=== PATIENT | female | born 1995 ===

== ENCOUNTER 2020-02-23 11:17 | Outpatient (CLI) | payer BC, OTHER ==
[2020-02-24 12:22] LABS: SARS-CoV-2 MS2 Positive; SARS-CoV-2 N Gene Negative; SARS-CoV-2 S Gene Negative; SARS-CoV-2 by NAA Not Detected (NotDetected); SARS-CoV-2 orf1ab Negative
== END 2020-02-23 11:18 | disposition home or self-care (01) ==
LOC: LABSCS 11:17
PROVIDERS: ATTEND Obstetrics & Gynecology
DX: Z20.828 Contact with and (suspected) exposure to other viral communicable diseases (principal)
CPT/HCPCS: 87635; U0003

== ENCOUNTER 2020-02-26 19:30 | Inpatient (IN) | payer BC, OTHER ==
[~2020-02-26 19:30] MED LIST: Bupivacaine 0.25% HCL 30 ML VIAL ONE
[2020-02-26] MEDS ORDERED: Lidocaine 1% (PF) 30 ML VIAL SC PRN (20:43)
[2020-02-26] MEDS ORDERED: Ibuprofen 800 MG TAB PO PRN (20:43)
[2020-02-26] MEDS ORDERED: Ondansetron PF 4 MG/2 ML Vial IVP PRN (20:43)
[2020-02-26] MEDS ORDERED: hydrALAZINE 20 MG/ML VIAL SLOW IVP PRN (20:43)
[2020-02-26] MEDS ORDERED: NS / Oxytocin 40 units/1000ml 1,000 ML IV PRN (20:43)
[2020-02-26] MEDS ORDERED: HYDROcodone/Acetaminophen 5/325 mg Tablet PO PRN ×2 (20:43)
[2020-02-26] MEDS ORDERED: Promethazine HCl 25 MG/ML VIAL IM PRN (20:43)
[2020-02-26] MEDS ORDERED: NS w/ Oxytocin 10 units 500 ML IV SCH ×2 (20:43)
[2020-02-26 21:15] LABS: Hemoglobin 13.5 g/dL (12.0-16.0); Mean Corpuscular Hemoglobin 29.9 pg (27.0-31.0); Mean Corpuscular Volume 87.9 fL (78.0-98.0); Mean Platelet Volume 8.3 fL (7.4-10.4); Platelet Count 314 thou/uL (130-400); RBC Distribution Width 14.9 % (11.5-14.5); Red Blood Cell (RBC) Count 4.53 mill/uL (4.20-5.40); White Blood Cell (WBC) Count 15.1 thou/uL (4.8-10.8)
[2020-02-26 21:18] VITALS: BMI 29.0
[2020-02-26] MEDS ORDERED: Misoprostol 100 MCG TAB VAG SCH ×2 (21:30)
[2020-02-26] MEDS: Lactated Ringer's 1,000 ML IV SCH (21:48)
[2020-02-26 21:53] LABS: Syphilis Antibody Nonreactive (Nonreactive); Syphilis Antibody Index 0.02 S/CO (<1.00 Non-Reactive)
[2020-02-26 23:18] LABS: HBSAg Index 0.12 S/CO (0-0.99); Hep B Surf Ag Non-Reactive S/CO (NonReactive)
[2020-02-27] MEDS: Butorphanol Tartrate 1 MG/ML VIAL SLOW IVP PRN ×2 (02:02→03:30)
[2020-02-27] MEDS ORDERED: Fentanyl 4 mcg/Bup 0.1% Cadd 100 ML ONE ×2 (04:42→11:39)
[2020-02-27] MEDS ORDERED: Ondansetron PF 4 MG/2 ML Vial IVP PRN ×2 (05:22→18:18)
[2020-02-27] MEDS ORDERED: Promethazine HCl 25 MG/ML VIAL IM PRN (05:22)
[2020-02-27] MEDS ORDERED: Lactated Ringer's 500 ML IV PRN (05:22)
[2020-02-27] MEDS ORDERED: EPHEDRINE 25 MG/5 ML SYRINGE SLOW IVP PRN (05:22)
[2020-02-27] MEDS ORDERED: diphenhydrAMINE 50 MG/ML VIAL IVP PRN (05:22)
[2020-02-27] MEDS ORDERED: Naloxone HCl 0.4 mg/ml Vial IVP PRN ×2 (05:22)
[2020-02-27] MEDS ORDERED: Acetaminophen 325 MG TAB PO PRN (05:22)
[2020-02-27] MEDS ORDERED: Communication Order-Pharmacy FS SCH (05:30)
[2020-02-27] MEDS ORDERED: Fentanyl 4 mcg/Bupivacaine 0.1% Cassette 100 ML EPIDURAL SCH (05:30)
[2020-02-27] MEDS ORDERED: Calcium Carbonate 500 MG ChewTAB PO SCH (09:30)
[2020-02-27] MEDS ORDERED: Misoprostol 200 MCG TAB ONE (10:02)
[2020-02-27] MEDS: Lactated Ringer's 1,000 ML IV SCH ×2 (14:06→18:52)
--- NOTE | 2020-02-27 16:02 | PDOC.OPDEL ---
OB Operative/Delivery Note Delivery Dr/Surgeon: Adin Pre-Delivery Diagnosis: elective induction Procedure/Post Delivery Dx: operative vaginal delivery (VAVD) Weeks gestation: 40 Anesthesia: epidural - Findings A Sex: male - 1 min: 7 - 5 min: 9 - Additional Findings/Plan Placenta delivered: spontaneous Repaired Obstetrical Laceration: left labial Estimated blood loss: 75ml Compilations/Other Findings: nuchal x 2 VAVD w 3 contractions applied at +3, no pops-placed for maternal exhautions and at maternal request w 3.5 hours of pushing Post delivery plan: routine recovery
[2020-02-27] MEDS ORDERED: hydrALAZINE 20 MG/ML VIAL SLOW IVP PRN (18:18)
[2020-02-27] MEDS ORDERED: Milk Of Magnesia 30 ML UDCUP PO PRN (18:18)
[2020-02-27] MEDS ORDERED: Preparation H Ointment 28 GM TUBE PR PRN (18:18)
[2020-02-27] MEDS ORDERED: Bisacodyl 10 MG SUPP PR PRN (18:18)
[2020-02-27] MEDS ORDERED: Benzocaine-Menthol 82.5 ML CAN TOP PRN (18:18)
[2020-02-27] MEDS ORDERED: NS / Oxytocin 40 units/1000ml 1,000 ML IV SCH (18:18)
[2020-02-27] MEDS ORDERED: Lanolin Ointment 7 GM TUBE TOP PRN (18:18)
[2020-02-27] MEDS ORDERED: diphenhydrAMINE 25 MG CAP PO PRN (18:18)
[2020-02-27] MEDS ORDERED: HYDROcodone/Acetaminophen 5/325 mg Tablet PO PRN ×2 (18:18)
[2020-02-27] MEDS: Ibuprofen 800 MG TAB PO SCH (21:18)
[2020-02-27] MEDS: Docusate Calcium (SURFAK) 240 MG CAP PO SCH (21:18)
[2020-02-28] MEDS: Ibuprofen 800 MG TAB PO SCH ×3 (04:58→21:18)
--- NOTE | 2020-02-28 08:45 | PDOC.PP ---
Post Progress Note Post Day #: 1 Subjective: doing well, tired, minimal discomfort PO intake tolerated: yes Flatus: yes Ambulation: yes Vital Signs (12 hours) Temp Pulse Resp BP 02/28/20 04:55 97.8 F 66 18 111/55 L 02/28/20 00:25 98.5 F 91 18 133/80 02/27/20 21:00 98.7 F 96 18 134/83 Weight Weight 180 lb - Physical Examination General: NAD Respiratory: non-labored breathing Abdominal: no distention Fundus firm & at: below umb Neurological: no gross focal deficits Psychiatric: A&Ox3, normal affect Result Diagrams: 02/26/20 21:04 Additional Labs: Post Labs Blood Type A POSITIVE 02/26/20 22:37 Hep Bs Antigen Non-Reactive S/CO (NonReactive) 02/26/20 21:04 (1) Vacuum-assisted vaginal delivery Code(s): Z37.9 - OUTCOME OF DELIVERY, UNSPECIFIED Status: Acute (2) 40 weeks gestation of Code(s): Z3A.40 - 40 WEEKS GESTATION OF Status: Acute (3) Gestational diabetes Code(s): O24.419 - GESTATIONAL DIABETES MELLITUS IN , UNSP CONTROL Status: Acute - Assessment/Plan PPD 1 doing well, plan for DC tomorrow.
[2020-02-28] MEDS ORDERED: Adacel (T-DAP) 0.5 ML SYRINGE IM ONE (09:00)
[2020-02-28] MEDS: Docusate Calcium (SURFAK) 240 MG CAP PO SCH ×2 (09:07→21:18)
[2020-02-28] MEDS: Prenatal Vitamin 1 TAB PO SCH (09:07)
[2020-02-28] MEDS: Ferrous Sulfate 325 MG TAB PO SCH ×2 (09:08→15:12)
[2020-02-29] MEDS: Ibuprofen 800 MG TAB PO SCH (05:43)
[2020-02-29 08:24] VITALS: BP 137/74; TEMP 98.2
[2020-02-29] MEDS: Prenatal Vitamin 1 TAB PO SCH (08:49)
[2020-02-29] MEDS: Docusate Calcium (SURFAK) 240 MG CAP PO SCH (08:49)
[2020-02-29] MEDS: Ferrous Sulfate 325 MG TAB PO SCH (08:49)
--- NOTE | 2020-02-29 08:53 | PDOC.PP ---
Post Progress Note Post Day #: 2 Subjective: doing well, ready for DC PO intake tolerated: yes Flatus: yes Ambulation: yes Vital Signs (12 hours) Temp Pulse Resp BP Pulse Ox 02/29/20 08:23 98.2 F 76 20 137/74 97 Weight Weight 180 lb - Physical Examination General: NAD Respiratory: non-labored breathing Psychiatric: A&Ox3, normal affect Result Diagrams: 02/26/20 21:04 Additional Labs: Post Labs Blood Type A POSITIVE 02/26/20 22:37 Hep Bs Antigen Non-Reactive S/CO (NonReactive) 02/26/20 21:04 (1) Vacuum-assisted vaginal delivery Code(s): Z37.9 - OUTCOME OF DELIVERY, UNSPECIFIED Status: Acute (2) 40 weeks gestation of Code(s): Z3A.40 - 40 WEEKS GESTATION OF Status: Acute (3) Gestational diabetes Code(s): O24.419 - GESTATIONAL DIABETES MELLITUS IN , UNSP CONTROL Status: Acute - Assessment/Plan PPD2 doing well, plan for DC today.
== END 2020-02-29 14:15 | disposition home or self-care (01) | DRG 807 ==
LOC: L&D 20:29 → 3SW 02-27 18:42
PROVIDERS: ADMIT Obstetrics & Gynecology; ATTEND Obstetrics & Gynecology
PROC: 10D07Z6 Extraction of Products of Conception, Vacuum, Via Natural or Artificial Opening (ICD-10-PCS; principal; 2020-02-27)
PROC: 0UQMXZZ Repair Vulva, External Approach (ICD-10-PCS; 2020-02-27)
DX: O48.0 Post-term pregnancy (principal); Z37.0 Single live birth; O24.429 Gestational diabetes mellitus in childbirth, unspecified control; O69.81X0 Labor and delivery complicated by cord around neck, without compression, not applicable or unspecified; O75.81 Maternal exhaustion complicating labor and delivery; Z3A.40 40 weeks gestation of pregnancy; O70.0 First degree perineal laceration during delivery
CPT/HCPCS: 36415; 36416; 51702; 85027; 86780; 86850; 86900; 86901; 87340; 87635; J0595; J2405; J2590; S0020; U0003